=== PATIENT | female | born 1955 | race Caucasian/White ===

== ENCOUNTER 2024-03-19 17:24 | Emergency (ER) | payer MEDICARE, SELFPAY ==
[2024-03-19 17:36] VITALS: BP 151/74; PULSE 109; RESP 16; TEMP 37.3; O2SAT 95; BMI 36.4
--- NOTE | 2024-03-19 17:48 | ED_ITS ---
HPI - General Adult General Chief complaint: Chest Pain Stated complaint: Chest Pain Time Seen by Provider: 03/19/24 17:39 History of Present Illness HPI narrative: c/o woke up with chest pain in the left side. pt has a hx. of lung cancer. has completed 4 rounds of chemo . cancer was in the lower left lob of the lung. pt concerned that chest pain is related to the lung cancer. pt is scheduled to have surgical removal of the lower left lob in roughly 2 weeks. pt. pain in triage was 08/13, pt denies N/V/D, SOB. granddaughter visited a week ago and had undiagnosed URI 68-year-old woman presenting to the emergency department with concern of left- sided chest pain. She notes how she had an ill-advised late night snack of [place] muffin peanut butter in milk and woke at about 6:00 a.m. with intense left sided somewhat midline chest pain. This did spontaneously settle and then recurred again little later. Does not describe any associated symptoms. She does have a history of heartburn but it does not sound as though this was that. She now only has a sense of chest fullness in that area. She is not more short of breath. Does have an underlying history of adenocarcinoma of the lung and having received chemo is pending a lobectomy in about 2 weeks. Has not had any fever or cough. Related Data Home Medications ?Medication ?Instructions ?Recorded ?Confirmed albuterol sulfate 90 mcg/actuation 1 puff inhalation Q6H PRN wheezing 03/19/24 03/19/24 aerosol inhaler atorvastatin 40 mg tablet 40 mg PO DAILY 03/19/24 03/19/24 empagliflozin 10 mg tablet 10 mg PO DAILY 03/19/24 03/19/24 (Jardiance) ezetimibe 10 mg tablet 10 mg PO DAILY 03/19/24 03/19/24 fluticasone 250 mcg-salmeterol 50 1 ea inhalation BID 03/19/24 03/19/24 mcg/dose blistr powdr for inhalation insulin glargine 100 unit/mL 45 unit subcut QPM 03/19/24 03/19/24 subcutaneous solution (Lantus U-100 Insulin) insulin regular human 100 unit/mL 1 sliding scale dose subcut 03/19/24 03/19/24 injection solution (Novolin R USEASDIRECTD Regular U-100 Insulin) losartan 100 mg tablet 100 mg PO DAILY 03/19/24 03/19/24 ondansetron HCl 4 mg tablet 4 mg PO Q8H PRN nausea 03/19/24 03/19/24 Review of Systems Status of ROS: Reports: 6 or more systems reviewed and unremarkable except as noted in History and below PFSH PFSH Social History Smoking Status: Never smoker How often do you have a drink containing alcohol: never AUDIT-C Alcohol total score: 0 Non-prescribed substance use: denies use Exam Narrative: Exam Narrative: Very pleasant and positive. NAD. Skin is warm and dry. No blisters or rashes appreciated. She is well-perfused peripherally. She is breathing easily. Lungs are clear other than a little clearing crepitus in the left upper lung area. There is no supraclavicular crepitus. Heart in regular rate and rhythm without murmur rub or gallop. Abdomen is overweight soft and nontender. I am not reproducing discomfort to palpation over the chest wall. Const: Vital Signs, click to edit/add: Vital Signs - 24 hr 03/19/24 17:36 Temperature 99.1 F Pulse Rate [Pulse Oximeter] 109 H Respiratory Rate 16 Blood Pressure [Ri ght Upper Arm] 151/74 H Pulse Oximetry 95 Oxygen Delivery Me thod Room Air Documenting provider has reviewed patient's vital signs: yes Course Vital Signs Vital signs: Initial Vital Signs Temperature 99.1 F 03/19/24 17:36 Temperature Source Temporal Artery Scan 03/19/24 17:36 Pulse Rate 109 H 03/19/24 17:36 Respiratory Rate 16 03/19/24 17:36 Blood Pressure 151/74 H 03/19/24 17:36 Blood Pressure Mean 99 03/19/24 17:36 Blood Pressure Position Sitting 03/19/24 17:36 Pulse Oximetry 95 03/19/24 17:36 Oxygen Delivery Method Room Air 03/19/24 17:36 Vital Signs Temperature 99.1 F 03/19/24 17:36 Pulse Rate 109 H 03/19/24 17:36 Respiratory Rate 16 03/19/24 17:36 Blood Pressure 151/74 H 03/19/24 17:36 Pulse Oximetry 95 03/19/24 17:36 Oxygen Delivery Method Room Air 03/19/24 17:36 Temperature 99.1 F 03/19/24 17:36 Pulse Rate 107 H 03/19/24 20:00 Respiratory Rate 16 03/19/24 17:36 Blood Pressure 153/107 H 03/19/24 20:02 Pulse Oximetry 96 03/19/24 20:00 Oxygen Delivery Method Room Air 03/19/24 17:36 Medical Decision Making MDM Narrative Medical decision making narrative: Certainly could be evolving and effusion related to this cancer. Possible pneumothorax or bacterial infiltrate. May have been cardiac related problem, ischemia? Possibly reflux. Initial EKG reviewed by me shows sinus rhythm little elevated rate at 99. Chest x-ray reviewed by me looks to show some atelectatic change in the left lower lung. Radiology over-read below Left-sided chest pressure. Known lung cancer. TECHNIQUE: Chest 2 view(s) COMPARISON: None available. FINDINGS: Cardiomediastinal silhouette and pulmonary vasculature are normal. Platelike atelectasis in the left lower lung. Mild patchy opacities in the left lower lobe. No layering pleural effusion. No pneumothorax. Multilevel degenerative changes of the visualized spine. IMPRESSION: Mild patchy opacities in the left lower lobe, may reflect pneumonia. No large lung mass is identified, evaluation of the known lung cancer would require chest CT. I think with normal white count and lack of other infectious symptoms, cough or shortness of breath, I would think that the findings in the chest x-ray are more related to what she describes as a shrunk lung cancer. She notes chronically and slightly elevated bilirubin See patient discharge plan for further discussion Lab Data Lab results reviewed: Yes I reviewed the patient's lab results Labs: Lab Results 03/19/24 03/19/24 03/19/24 Range/Units 18:45 18:45 19:10 WBC 10.62 (4.50-11.00) K/uL RBC 4.60 (4.00-5.20) m/uL Hgb 14.2 (12.0-16.0) gm/dL Hct 42.6 (33.0-51.0) % MCV 93 (80-100) fL MCH 31 (26-34) pg MCHC 33 (32-36) gm/dL RDW Coeff of [place] 13.5 (11.5-15.5) % Plt Count 289 (140-440) K/uL Neut % (Auto) 65.3 (42.0-72.0) % Lymph % (Auto) 25.0 (20-44) % [place] % (Auto) 8.1 (0.0-11.0) % Eos % (Auto) 1.0 (0.0-7.0) % Baso % (Auto) 0.5 (0.0-3.0) % Neut # (Auto) 6.94 (1.7-7.0) K/uL Lymph # (Auto) 2.65 (0.90-2.90) K/uL [place] # (Auto) 0.90 (0.00-0.90) K/UL Eos # (Auto) 0.11 (0.00-0.50) K/uL Baso # (Auto) 0.05 (0.00-0.30) K/uL Abs Immat Gran (auto) 0.01 (0.00-0.30) K/uL Imm/Tot Granulo (auto) 0.1 % Sodium 138 (135-149) mmol/L Potassium 3.1 L (3.6-5.1) mmol/L Chloride 102 (96-114) mmol/L Carbon Dioxide 27 (20-32) mmol/L Anion Gap 9 (7-15) mEq/L BUN 13 (7-30) mg/dL Creatinine 0.4 L (0.5-1.5) mg/dL Estimated Creat Clear 68.44 Estimated GFR 107 ml/min Glucose 167 H (60-115) mg/dL Calcium 9.6 (8.4-10.6) mg/dL Magnesium 2.1 Cancelled (1.5-2.6) mg/dL Total Bilirubin 2.0 H (0.1-1.5) mg/dL Direct Bilirubin 0.2 (0.0-0.5) mg/dL AST 29 (12-35) U/L ALT 33 (4-35) U/L Alkaline Phosphatase 96 (40-150) U/L Troponin I < 0.01 L (0.01-0.04) ng/mL C-Reactive Protein < 0.5 L (0.5-1.0) mg/dL NT-Pro-B Natriuret Pep 75 pg/mL Total Protein 7.1 (6.0-8.3) g/dL Albumin 4.7 (3.3-5.0) g/dL Lipase 143 (23-300) U/L Lab Acknowledgement Test Added Discharge Plan Discharge Clinical Impression: Atypical chest pain, Hypokalemia Patient Disposition: Home w/ Parent or Adult Condition: Stable Additional Instructions: Be seen/return for persistent and increasing shortness of breath, development of fever or cough, persistent chest pain. Your potassium as we discussed was slightly low. I would consider comparing this to prior labs. I understand you do have a lab draw soon as well. Was a pleasure taking care of you today. Wishing you well with this upcoming surgery and related. Prescriptions: No Action atorvastatin 40 mg tablet 40 mg PO DAILY fluticasone propion-salmeterol 250-50 mcg/dose blister with device 1 ea inhalation BID insulin glargine [Lantus U-100 Insulin] 100 unit/mL solution 45 unit subcut QPM ondansetron HCl 4 mg tablet 4 mg PO Q8H PRN (Reason: nausea) albuterol sulfate 90 mcg/actuation HFA aerosol inhaler 1 puff inhalation Q6H PRN (Reason: wheezing) losartan 100 mg tablet 100 mg PO DAILY ezetimibe 10 mg tablet 10 mg PO DAILY Jardiance 10 mg tablet 10 mg PO DAILY Novolin R Regular U100 Insulin 100 unit/mL solution 1 sliding scale dose subcut USEASDIRECTD Follow Up/Referrals: Hung Alexandra PA-C [Primary Care Provider] - Stand Alone Forms: [employer] Info Instructions
--- NOTE | 2024-03-19 18:14 | CRLHL7_ITS ---
For Patients: As a result of the Century Cures Act, medical imaging exams and procedure reports are released immediately into your electronic medical record. You may view this report before your referring provider. If you have questions, please contact your health care provider. INDICATION: Left-sided chest pressure. Known lung cancer. TECHNIQUE: Chest 2 view(s) COMPARISON: None available. FINDINGS: Cardiomediastinal silhouette and pulmonary vasculature are normal. Platelike atelectasis in the left lower lung. Mild patchy opacities in the left lower lobe. No layering pleural effusion. No pneumothorax. Multilevel degenerative changes of the visualized spine. IMPRESSION: Mild patchy opacities in the left lower lobe, may reflect pneumonia. No large lung mass is identified, evaluation of the known lung cancer would require chest CT. Dictated by Amy Ferguson MD @ 03/19/2024 7:51:43 PM (Electronically Signed)
[2024-03-19 18:54] LABS: Basophils Absolute Auto 0.05 K/uL (0.00-0.30); Basophils Percent Auto 0.5 % (0.0-3.0); Eosinophils Absolute Auto 0.11 K/uL (0.00-0.50); Hematocrit 42.6 % (33.0-51.0); Hemoglobin* 14.2 gm/dL (12.0-16.0); Immature Granulocytes Abs Auto 0.01 K/uL (0.00-0.30); Immature Granulocytes Pct Auto 0.1 %; Lymphocytes Absolute Auto 2.65 K/uL (0.90-2.90); Mean Corpuscular HGB Conc 33 gm/dL (32-36); Mean Corpuscular Hemoglobin 31 pg (26-34); Mean Corpuscular Volume 93 fL (80-100); Monocytes Percent Auto 8.1 % (0.0-11.0); Neutrophils Absolute Auto 6.94 K/uL (1.7-7.0); Neutrophils Percent Auto 65.3 % (42.0-72.0); Platelet Count* 289 K/uL (140-440); RDW Coefficient of Variation % 13.5 % (11.5-15.5); White Blood Count* 10.62 K/uL (4.50-11.00)
[2024-03-19 18:58] LABS: Slide Review Reflex No
[2024-03-19 19:08] LABS: Albumin* 4.7 g/dL (3.3-5.0); Chloride* 102 mmol/L (96-114)
[2024-03-19 19:09] LABS: Potassium* 3.1 mmol/L (3.6-5.1); Sodium* 138 mmol/L (135-149)
[2024-03-19 19:11] LABS: Alkaline Phosphatase* 96 U/L (40-150); Anion Gap 9 mEq/L (7-15); Aspartate Amino Transferase* 29 U/L (12-35); Bilirubin Direct* 0.2 mg/dL (0.0-0.5); Blood Urea Nitrogen* 13 mg/dL (7-30); Carbon Dioxide* 27 mmol/L (20-32); Creatinine* 0.4 mg/dL (0.5-1.5); Est. Creatinine Clearance* 68.44; Estimated Glomerular Filt Rate 107 ml/min; Total Protein* 7.1 g/dL (6.0-8.3)
[2024-03-19 19:12] LABS: Alanine Aminotransferase* 33 U/L (4-35); Calcium* 9.6 mg/dL (8.4-10.6); Glucose* 167 mg/dL (60-115); Lipase* 143 U/L (23-300); Magnesium* 2.1 mg/dL (1.5-2.6)
[2024-03-19 19:17] LABS: C Reactive Protein* < 0.5 mg/dL (0.5-1.0)
[2024-03-19 19:46] VITALS: PULSE 100; O2SAT 96
[2024-03-19 19:52] LABS: NT Pro B Type NatriureticPept* 75 pg/mL; Troponin I* < 0.01 ng/mL (0.01-0.04)
[2024-03-19 20:00] VITALS: PULSE 107; O2SAT 96
[2024-03-19 20:02] VITALS: BP 153/107
== END 2024-03-19 20:27 | disposition home or self-care (01) ==
PROVIDERS: Emergency Provider Family Medicine; PCP Physician Assistant Medical
DX: R07.89 Other chest pain (principal); E87.6 Hypokalemia
CPT/HCPCS: 36415; 71046; 80048; 80076; 83690; 83735; 83880; 84484; 85025; 86140; 93005; 94761; 99284; 99285